=== PATIENT | female | born 1950 | race Hispanic/Latino ===

== ENCOUNTER 2019-04-14 13:04 | Outpatient (CLI) | payer MEDICARE ==
--- NOTE | 2019-04-14 13:18 | RAD ---
EXAM: Two views chest PROVIDED CLINICAL HISTORY: Other nonspecific abnormal findings of lung field. Patient states she has been sick for 2 weeks. COMPARISON: None FINDINGS: Cardiac silhouette and pulmonary vasculature are within normal limits. The lungs are clear. Mild deg enerative changes are seen in the spine. Vascular calcifications are seen in the thoracic aorta. Surgical clips overlie the right upper quadrant. IMPRESSION: No acute cardiopulmonary process.
== END 2019-04-14 13:05 | disposition home or self-care (01) ==
LOC: BICRAD 13:04
PROVIDERS: ATTEND Family Medicine
DX: R91.8 Other nonspecific abnormal finding of lung field (principal)
CPT/HCPCS: 71046

== ENCOUNTER 2020-11-25 14:47 | Outpatient (CLI) | payer MEDICARE, BC | END 2020-11-25 14:48 | disposition home or self-care (01) | LOC: BICRAD 14:47 | PROVIDERS: ATTEND Family Medicine | DX: M25.551 Pain in right hip (principal) | CPT/HCPCS: 72170 ==

== ENCOUNTER 2021-08-07 09:38 | Outpatient (CLI) | payer MEDICARE ==
[2021-08-07] MEDS ORDERED: Iopamidol 370 76% 100 ML VIAL ONE (14:56)
== END 2021-08-07 09:39 | disposition home or self-care (01) ==
LOC: CT 09:38
PROVIDERS: ATTEND Internal Medicine Gastroenterology
DX: D3A.8 Other benign neuroendocrine tumors (principal); K76.0 Fatty (change of) liver, not elsewhere classified
CPT/HCPCS: 74178; 82565; Q9967

== ENCOUNTER 2023-05-14 14:05 | Outpatient (CLI) | payer MEDICARE | END 2023-05-14 14:06 | disposition home or self-care (01) | LOC: BICMAMMO 14:05 | PROVIDERS: ATTEND Family Medicine | DX: Z12.31 Encounter for screening mammogram for malignant neoplasm of breast (principal); Z80.3 Family history of malignant neoplasm of breast; Z98.890 Other specified postprocedural states | CPT/HCPCS: 77063; 77067 ==

== ENCOUNTER 2023-09-27 14:07 | Outpatient (CLI) | payer MEDICARE | END 2023-09-27 14:08 | disposition home or self-care (01) | LOC: BICRAD 14:07 | PROVIDERS: ATTEND Family Medicine | DX: J18.9 Pneumonia, unspecified organism (principal) | CPT/HCPCS: 71046 ==

== ENCOUNTER → 2024-02-12 | Outpatient (CLI) | payer MEDICARE | LOC: BICULT 14:49 | PROVIDERS: ATTEND Family Medicine | DX: N95.0 Postmenopausal bleeding (principal); E34.0 Carcinoid syndrome; N85.8 Other specified noninflammatory disorders of uterus; R93.89 Abnormal findings on diagnostic imaging of other specified body structures | CPT/HCPCS: 76856; 93976 ==

== ENCOUNTER 2024-12-01 19:58 | Emergency (ER) | payer MEDICARE | END 2024-12-01 23:08 | LOC: ERS 19:58 | DX: Z53.21 Procedure and treatment not carried out due to patient leaving prior to being seen by health care provider (principal) | CPT/HCPCS: 71045; 93005 ==